=== PATIENT | female | born 1960 | race Two or more races ===

== ENCOUNTER 2018-06-29 07:17 | Emergency (ER) | payer SELFPAY ==
[~2018-06-29] VITALS: Ht 154.9 cm; Wt 77.1 kg
[2018-06-29 07:24] VITALS: BP 154/84
== END 2018-06-29 08:24 | disposition home or self-care (01) ==
LOC: ER 07:17
DX: L02.212 Cutaneous abscess of back [any part, except buttock and flank] (principal); Z90.710 Acquired absence of both cervix and uterus; Z98.51 Tubal ligation status; Z90.49 Acquired absence of other specified parts of digestive tract

== ENCOUNTER 2018-07-05 18:10 | Emergency (ER) | payer MEDICAID ==
[~2018-07-05] VITALS: Ht 154.9 cm; Wt 78.9 kg
[2018-07-05 18:28] VITALS: BP 139/72
== END 2018-07-05 19:38 | disposition home or self-care (01) ==
LOC: ER 18:10
DX: L02.413 Cutaneous abscess of right upper limb (principal); Z90.49 Acquired absence of other specified parts of digestive tract; Z98.51 Tubal ligation status; Z90.710 Acquired absence of both cervix and uterus

== ENCOUNTER 2022-04-30 06:27 | Emergency (ER) | payer MEDICAID, OTHER ==
[~2022-04-30] VITALS: Ht 154.9 cm; Wt 66.8 kg
[2022-04-30 08:50] VITALS: BP 119/74
[2022-04-30] MEDS ORDERED: LORA10CA7 PO (08:50)
[2022-04-30] MEDS ORDERED: PRED10TA PO (08:50)
[2022-04-30] MEDS ORDERED: CEPH-510 PO (08:50)
[2022-04-30] MEDS ORDERED: methylPREDNISolone SOD SUCC 125 MG/2 ML VL IM ONE (09:00)
[2022-04-30] MEDS ORDERED: TETANUS-DIPTH-ACEL PERTUSSIS 0.5ML SYR Tdap IM ONE (09:00)
== END 2022-04-30 09:18 | disposition home or self-care (01) ==
LOC: ER 06:27
DX: S80.862A Insect bite (nonvenomous), left lower leg, initial encounter (principal); S80.861A Insect bite (nonvenomous), right lower leg, initial encounter; Z90.49 Acquired absence of other specified parts of digestive tract; Z90.710 Acquired absence of both cervix and uterus; Z98.51 Tubal ligation status; W57.XXXA Bitten or stung by nonvenomous insect and other nonvenomous arthropods, initial encounter; Y93.89 Activity, other specified; Y92.89 Other specified places as the place of occurrence of the external cause; Y99.8 Other external cause status
CPT/HCPCS: 90471; 90715; 96372; 99284; J2930